=== PATIENT | male | born 1980 ===

== ENCOUNTER 2022-05-26 07:48 | Emergency (ER) | payer OTHER ==
[2022-05-26] MEDS ORDERED: Lidocaine 1% PF 5 ML VIAL ONE (08:28)
[2022-05-26] MEDS ORDERED: Bacitracin 1 PK ONE (09:10)
== END 2022-05-26 09:16 | disposition home or self-care (01) ==
LOC: ERS 07:48
DX: S61.511A Laceration without foreign body of right wrist, initial encounter (principal); F17.210 Nicotine dependence, cigarettes, uncomplicated; W25.XXXA Contact with sharp glass, initial encounter
CPT/HCPCS: 12001

== ENCOUNTER 2022-06-04 07:52 | Emergency (ER) | payer SELFPAY | END 2022-06-04 08:15 | disposition home or self-care (01) | LOC: ERS 07:52 | DX: S61.511D Laceration without foreign body of right wrist, subsequent encounter (principal); F17.210 Nicotine dependence, cigarettes, uncomplicated; W26.9XXD Contact with unspecified sharp object(s), subsequent encounter | CPT/HCPCS: 99282 ==

== ENCOUNTER 2022-07-12 11:56 | Day surgery (SDC) | payer OTHER, SELFPAY ==
[2022-07-12] MEDS ORDERED: Morphine 4 MG/ML VIAL ONE (13:05)
[2022-07-12] MEDS ORDERED: Lidocaine 1% w/Epinephrine 1:100K 20 ML VIAL ONE (13:06)
[2022-07-12] MEDS ORDERED: Ondansetron PF 4 MG/2 ML Vial ONE ×2 (13:06→15:49)
[2022-07-12 13:33] LABS: #Basophils 0.1 thou/uL (0.0-0.2); #Eosinphils 0.2 thou/uL (0.0-0.7); #Lymphocytes 2.4 thou/uL (1.20-3.40); #Monocytes 0.5 thou/uL (0.11-0.59); %Basophils 0.6 % (0.0-1.0); %Eosinophils 1.9 % (0.0-10.0); %Lymphocytes 26.5 % (21.0-51.0); %Monocytes 5.3 % (0.0-10.0); %Neutrophils 65.8 % (42.0-75.0); Hemoglobin 16.2 g/dL (14.0-18.0); Mean Corpuscular HGB CONC 34.4 g/dL (32.0-36.0); Mean Corpuscular Hemoglobin 34.5 pg (27.0-31.0); Mean Platelet Volume 8.7 fL (7.4-10.4); Platelet Count 244 10x3/uL (130-400); White Blood Cell (WBC) Count 9.2 10x3/uL (4.8-10.8)
[2022-07-12] MEDS ORDERED: CEFAZOLIN 2 GM VIAL ONE (13:48)
[2022-07-12 13:50] LABS: ALT (SGPT) 9 U/L (8-55); AST (SGOT) 16 U/L (5-34); Albumin 4.3 g/dL (3.5-5.0); Alkaline Phosphatase 77 U/L (40-110); Anion Gap 15 mmol/L (10-20); BUN (Urea Nitrogen) 16 mg/dL (8.9-20.6); Bilirubin, Total 0.6 mg/dL (0.2-1.2); Calc. Creatinine Clearance 0 mL/min (70-130); Calcium 9.5 mg/dL (7.8-10.44); Carbon Dioxide 23 mmol/L (22-29); Chloride 103 mmol/L (98-107); Estimated GFR 93; Globulin 3.3 g/dL (2.4-3.5); Glucose 105 mg/dL (70-105); Potassium 4.2 mmol/L (3.5-5.1); Protein, Total 7.6 g/dL (6.0-8.3); Sodium 137 mmol/L (136-145)
[2022-07-12] MEDS ORDERED: Heparin 5,000 UNITS/ML VIAL ONE (14:42)
[2022-07-12] MEDS ORDERED: Protamine Sulfate 50 MG/5 ML VIAL ONE (14:42)
[2022-07-12] MEDS ORDERED: fentaNYL PF 100 MCG/2 ML SYRINGE ONE (15:39)
[2022-07-12] MEDS ORDERED: Succinylcholine Chloride 100 MG/5 ML SYRINGE FS ONE (15:49)
[2022-07-12] MEDS ORDERED: PROPOFOL 200 MG/20 ML VIAL ONE (15:49)
[2022-07-12] MEDS ORDERED: Dexamethasone 20 MG/5 ML VIAL ONE (15:49)
[2022-07-12] MEDS ORDERED: Bupivacaine HCl 0.5%/Epinephrine 1:200,000/PF 30 ml Vial ONE (15:57)
== END 2022-07-12 17:40 | disposition home or self-care (01) ==
LOC: ERS 11:56 → SDC/OP 15:38
PROVIDERS: ATTEND Thoracic Surgery (Cardiothoracic Vascular Surgery)
PROC: 0JQH0ZZ Repair Left Lower Arm Subcutaneous Tissue and Fascia, Open Approach (ICD-10-PCS; principal; 2022-07-12)
PROC: 03QC0ZZ Repair Left Radial Artery, Open Approach (ICD-10-PCS; principal; 2022-07-12)
DX: S65.112A Laceration of radial artery at wrist and hand level of left arm, initial encounter (principal); S61.512A Laceration without foreign body of left wrist, initial encounter; W25.XXXA Contact with sharp glass, initial encounter; Y99.0 Civilian activity done for income or pay
CPT/HCPCS: 36415; 80053; 85025; 86850; 86900; 86901; G0390; J1100; J1644; J2270; J2405; J2704; J2720